=== PATIENT | female | born 1990 | race Caucasian/White ===

== ENCOUNTER 2016-06-10 13:06 | Emergency (ER) | payer OTHER ==
[2016-06-10 13:22] VITALS: BP 134/45; PULSE 91; RESP 16; TEMP 98.2; O2SAT 95
[2016-06-10] MEDS ORDERED: OSELTAMIVIR PHOSPHATE 75 MG CAP PO ONE (14:35)
--- NOTE | 2016-06-10 14:40 | UCPHY ---
H & P Time Seen by Provider: 06/10/16 14:02 Patient Type: Established HPI/ROS: 26-year-old female with flu-like symptoms, cough congestion body aches for 1-2 days Review of systems General positive fever positive chills no weakness HEENT no eye pain no eye discharge. No eye redness, no sore throat Respiratory positive cough, no shortness of breath Cardiac no chest pain, no peripheral edema GI no abdominal pain, no diarrhea, no constipation, no nausea, no vomiting no flank pain, no hematuria, no dysuria Musculoskeletal no myalgias, no joint pain Heme no easy bruising, no easy bleeding Endo no polyuria, no polydipsia Skin no rashes, no pruritus Neuro no syncope, no dizziness, no headaches Psych is no suicidal ideation, no homicidal ideation Past Medical/Surgical History: Noncontributory Social History: No alcohol no drugs Smoking Status: Never smoked Physical Exam: Alert and oriented in no acute distress nontoxic appearance, afebrile Atraumatic normocephalic Neck no JVD Lungs clear to auscultation, no respiratory distress Heart regular rate and rhythm Extremities no cyanosis clubbing edema Constitutional: Initial Vital Signs Temperature (C) 36.8 C 06/10/16 13:17 Heart Rate 91 06/10/16 13:17 Respiratory Rate 16 06/10/16 13:17 Blood Pressure 134/45 H 06/10/16 13:17 O2 Sat (%) 95 06/10/16 13:17 O2 Delivery Mode Room Air Allergies/Adverse Reactions: No Known Allergies Allergy (Verified 06/10/16 13:17) Home Medications: Medication Instructions Recorded Wellbutrin 100mg (RX) 03/09/15 Control Pill 11/13/15 buPROPion 11/13/15 Oseltamivir Phosphate [Tamiflu 75 75 mg PO BID #10 cap 06/10/16 mg (*)] Medical Decision Making ED Course/Re-evaluation: Patient seen and evaluated for cough fevers chills. Influenza positive Impression Influenza Plan Tamiflu - Data Points Laboratory Results: 06/10/16 13:25 Influenza Typ A,B (DFA) POSITIVE FOR FLU A H (NEGATIVE) Medications Given: Discontinued Medications Oseltamivir Phosphate (Tamiflu) 75 mg PO EDNOW ONE Stop: 06/10/16 14:36 Last Admin: 06/10/16 15:02 Dose: 75 mg Departure - Departure Disposition: Home, Routine, Self-Care Clinical Impression: Influenza A Condition: Good Instructions: Influenza (ED) Referrals: Margaux Fournier MD [Primary Care Provider] - As per Instructions Prescriptions: Oseltamivir Phosphate [Tamiflu 75 mg (*)] 75 mg PO BID #10 cap - PQRS PQRS Measurement: na
== END 2016-06-10 15:02 | disposition home or self-care (01) ==
LOC: CED 13:06
DX: J11.1 Influenza due to unidentified influenza virus with other respiratory manifestations (principal)
CPT/HCPCS: 87400-PO; 99214-PO; G0463-PO

== ENCOUNTER → 2016-11-28 | Outpatient (CLI) | payer OTHER | LOC: CIMAGING 16:07 | PROVIDERS: ATTEND Family Medicine | DX: R22.32 Localized swelling, mass and lump, left upper limb (principal) | CPT/HCPCS: 76882-PO ==